=== PATIENT | female | born 1935 | race African-American/Black ===

== ENCOUNTER 2018-05-16 12:18 | Inpatient (IN) ==
--- NOTE | 2018-05-16 12:28 | Emergency Department Note ---
ED Disposition Clinical Impression: Abscess of right buttock, History of diabetes mellitus, type II Disposition: Admitted as Observation Condition on Discharge: Fair Instructions: DI for Skin Abscess Referrals: Paco Soto MD [Primary Care Provider] - Time of Disposition: 13:24 - Critical Care Critical Care Time: No Attestation: On 05/16/18, the high probability of a clinically significant, sudden or life threatening deterioration of the following system(s) required my full and direct attention, intervention and personal management. The time I documented below is in addition to time spent performing reported procedures but includes the following listed in this critical care notation. Medical Decision Making - Josh Inquiry Pt receiving controlled substance: No Vital Signs: 05/16/18 12:19 05/16/18 12:42 05/16/18 13:11 Temperature 98.0 F Temperature Source Oral Pulse Rate [Right Radial] 87 89 87 Respiratory Rate 16 16 16 Blood Pressure [Right Arm] 114/52 114/52 107/62 Blood Pressure Mean [Right Arm] 72 72 77 Blood Pressure Source [Right Arm] Automatic Cuff Automatic Cuff Automatic Cuff Blood Pressure Position [Right Arm] Supine Supine Supine 02 Sat by Pulse Oximetry 100 100 100 Oxygen Delivery Method Room Air Room Air Room Air Orders (Tests/Meds): ORDERS Category Date Time Status Complete Blood Count Auto Diff Stat Lab 05/16/18 12:23 Ordered Comprehensive Metabolic Panel Stat Lab 05/16/18 12:23 Ordered Lactic Acid Stat Lab 05/16/18 12:23 Ordered Blood Culture Stat Micro 05/16/18 12:23 Ordered - Physician Consults Physician Consulted: Dr. Soto Time: 13:20 (Dr. Soto called to request vanc per pharmacy, go ahead and admit with consult to surgery) Reason -: Admission Skin/Abscess/FB HPI - General Chief complaint: Skin/Abscess/Foreign Body Stated complaint: abscess on buttocks Time Seen by Provider: 05/16/18 12:25 Mode of Arrival: EMS - History of Present Illness HPI narrative: Seen by PCP at [facility] today, who requested transfer to ED for evaluation of abscess , right buttocks. Patient underwent eye surgery yesterday. She has no complaints today. Unknown timeframe for abscess. Hx DMBlanco RACHEL complaint: abscess/boil Onset (ago): unknown Severity: moderate Consistency: constant Relieving factors: none Exacerbating factors: none Context: other ([facility] pt) Associated symptoms: denies other symptoms Treatments prior to arrival: none - Related Data Home Medications Medication Instructions Recorded Confirmed Amlodipine Besylate [Norvasc 5mg 5 mg PO HS 01/09/18 05/16/18 tablet] Hydrocodone/Acetaminophen 1 each PO QID 01/09/18 05/16/18 [Hydrocodone-Acetamin 10-325 mg] Loratadine [Claritin] 10 mg PO DAILY 01/09/18 05/16/18 Metformin HCl 500 mg PO BID 01/09/18 05/16/18 Ondansetron HCl [Ondansetron 4mg 4 mg PO Q6 PRN 01/09/18 05/16/18 Tab] Spironolact/Hydrochlorothiazid 1 each PO DAILY 01/09/18 05/16/18 [Spironolactone-Hctz 25-25 Tab] Baclofen [Lioresal 10mg tablet] 10 mg PO TID 04/08/18 05/16/18 Mirtazapine [Remeron 15mg tablet] 15 mg PO HS 04/08/18 05/16/18 Sennosides/Docusate Sodium 1 each PO DAILY 04/08/18 05/16/18 [Senna-S Tablet] acetaminophen 500 mg capsule 500 mg PO Q6H PRN 04/18/18 05/16/18 Ascorbic Acid [Vitamin C] 1,000 mg PO DAILY 05/16/18 05/16/18 Allergies Allergy/AdvReac Type Severity Reaction Status Date / Time Penicillins Allergy Verified 05/16/18 12:33 [facility] History I have reviewed the patient's past medical history: Yes Medical History: Reports:: Diabetes Mellitus Type 2, Hyperlipidemia, Hypertension Denies:: Cancer, Diabetes Mellitus Type 1, Internal Pacemaker, Lung Disease, MRSA, Seizures Other Surgeries: No: Pacemaker Amputation: No Fractures: No - Social History Smoking Status: Former smoker Alcohol Intake: former ROS Obtained: Yes All systems reviewed & no additional complaints, Yes unobtainable due to mental condition ([facility] patient; poor historian; information from [place] report) Physical Exam - General General appearance: alert, in no apparent distress - Head Head exam: atraumatic, normocephalic, normal inspection - Eye Eye exam: Present: normal appearance, EOMI - ENT ENT exam: Present: normal exam, normal oropharynx, mucous membranes moist, normal external ear exam - Neck Neck exam: Present: normal inspection, full ROM, trachea midline. Absent: meningismus, lymphadenopathy - Chest Chest inspection: Present: normal inspection, symmetric chest wall rise. Absent : tenderness - Respiratory Respiratory exam: Present: normal lung sounds bilaterally. Absent: respiratory distress - Cardiovascular Cardiovascular exam: Present: regular rate, normal rhythm, normal heart sounds. Absent: JVD - Abdominal Exam Abdominal exam: Present: soft, normal bowel sounds. Absent: distention, tenderness, guarding, ascites, mass, bruit, pulsatile mass - Extremities Exam Extremities exam: Present: normal inspection, full ROM, normal capillary refill. Absent: calf tenderness - Back Exam Back exam: Present: normal inspection. Absent: tenderness - Neurological Exam Neurological exam: Present: alert, oriented X3 - Psychiatric Psychiatric exam: Present: normal affect, normal mood - Skin Skin exam: Present: warm, dry, intact, normal color, other (leathery, deep, extensive abscess to right buttocks just lateral to coccyx and to right of rectal area without any obvious external rectal involvement; no fluctuance or streaks; no pus or drainage. ) - Lymphatic Lymphatic Findings: no adenopathy
[2018-05-16 13:28] LABS: Basophils % 0.4 % (0.1-2.0); Eosinophils # 0.3 K/mm3 (0.0-0.4); Eosinophils % 3.1 % (0.1-12.0); Hematocrit 41.4 % (37.0-47.0); Hemoglobin 12.1 g/dL (12.2-16.2); Lymphocytes # 2.1 K/mm3 (0.7-4.5); Lymphocytes % 27.3 K/mm3 (10-50); Mean Corpuscular HGB Conc 29.4 g/dL (31.8-35.4); Mean Corpuscular Hemoglobin 27.7 pg (27.0-31.2); Mean Corpuscular Volume 94.3 fl (81-99); Mean Platelet Volume 7.6 fl (7.4-10.4); Monocytes # 0.4 K/mm3 (0.1-1.0); Monocytes % 5.6 % (1.7-9.3); Neutrophils % 63.6 % (37.0-80.0); Platelet Count 494 K/mm3 (142-424); Red Blood Count 4.39 M/mm3 (4.20-5.40); Red Cell Distribution Width 12.9 % (11.5-17.5); White Blood Count 7.9 K/mm3 (4.8-10.8)
[2018-05-16 13:42] LABS: Albumin Level 2.5 gm/dL (3.4-5.0); Albumin/Globulin Ratio 0.5 (1.1-1.8); Anion Gap 11.4 mEq/L (5-15); Bilirubin,Total 0.3 mg/dL (0.2-1.0); Calcium 9.2 mg/dL (8.5-10.1); Globulin 4.7 gm/dl (1.3-3.2); Potassium 3.4 mmoL/L (3.5-5.1); Total Protein,Serum 7.2 gm/dL (6.4-8.2)
--- NOTE | 2018-05-16 14:51 | Pharmacy Consult Notes ---
- Pharmacy Consult Date: 05/16/18 Time: 14:49 Referring provider: DR. ANDERSON Reason for Consult:: VANCOMYCIN DOSING-CELLULITIS/ABSCESS Allergies and ADEs:: Allergies Allergy/AdvReac Type Severity Reaction Status Date / Time Penicillins Allergy Verified 05/16/18 12:33 Home Medications:: Home Medications Medication Instructions Recorded Confirmed Type Amlodipine Besylate [Norvasc 5mg 5 mg PO HS 01/09/18 05/16/18 History tablet] Hydrocodone/Acetaminophen 1 each PO QID 01/09/18 05/16/18 History [Hydrocodone-Acetamin 10-325 mg] Loratadine [Claritin] 10 mg PO DAILY 01/09/18 05/16/18 History Metformin HCl 500 mg PO BID 01/09/18 05/16/18 History Ondansetron HCl [Ondansetron 4mg 4 mg PO Q6 PRN 01/09/18 05/16/18 History Tab] Spironolact/Hydrochlorothiazid 1 each PO DAILY 01/09/18 05/16/18 History [Spironolactone-Hctz 25-25 Tab] Baclofen [Lioresal 10mg tablet] 10 mg PO TID 04/08/18 05/16/18 History Mirtazapine [Remeron 15mg tablet] 15 mg PO HS 04/08/18 05/16/18 History Sennosides/Docusate Sodium 1 each PO DAILY 04/08/18 05/16/18 History [Senna-S Tablet] acetaminophen 500 mg capsule 500 mg PO Q6H PRN 04/18/18 05/16/18 History Ascorbic Acid [Vitamin C] 1,000 mg PO DAILY 05/16/18 05/16/18 History Height: 1.63 m Weight: 52.191 kg Laboratory Results:: Laboratory Results - last 24 hr 05/16/18 13:15: WBC 7.9, RBC 4.39, Hgb 12.1 L, Hct 41.4, MCV 94.3, MCH 27.7, MCHC 29.4 L, RDW 12.9, Plt Count 494 H, MPV 7.6, Neut % (Auto) 63.6, Lymph % ( Auto) 27.3, [place] % (Auto) 5.6, Eos % (Auto) 3.1, Baso % (Auto) 0.4, Neut # (Auto ) 5.0, Lymph # (Auto) 2.1, [place] # (Auto) 0.4, Eos # (Auto) 0.3, Baso # (Auto) 0.0 05/16/18 13:15: Sodium 141, Potassium 3.4 L, Chloride 104, Carbon Dioxide 29, Anion Gap 11.4, BUN 34 H, Creatinine 1.32 H, Estimated Creat Clear 26, Estimated GFR 38 L, Est GFR ( Amer) 46 L, Glucose 114 H, Calcium 9.2, Total Bilirubin 0.3, AST 28, ALT 18, Alkaline Phosphatase 86, Total Protein 7.2 , Albumin 2.5 L, Globulin 4.7 H, Albumin/Globulin Ratio 0.5 L 05/16/18 13:15: Lactic Acid 2.4 H Medical History: Reports:: Diabetes Mellitus Type 2, Hyperlipidemia, Hypertension Denies:: Cancer, Diabetes Mellitus Type 1, Internal Pacemaker, Lung Disease, MRSA, Seizures Assessment and Plan - Assessment and plan all Dx Assessment and Plan for all problems:: BASED ON PATIENT'S FACTORS, RECOMMEND PATIENT START WITH VANCOMYCIN 1000 MG NOW AND THEN VANCOMYCIN 1000 MG Q36H STARTING AT 1300 TOMORROW. PHARMACY WILL FOLLOW DAILY AND ADJUST APPROPRIATE. ELIESER WILKS, PHARMD
--- NOTE | 2018-05-16 15:08 | Pharmacy Consult Notes ---
[facility] Pharmacy VTE Monitoring - Patient Demographics Admission date: 05/16/18 Report Date: 05/16/18 Time: 15:08 Allergies/Adverse Reactions: Patient Allergies Penicillins Allergy (Verified 05/16/18 12:33) Height: 1.63 m Weight: 52.191 kg Patient Problems: Current Active Problems Abscess of right buttock (Acute) History of diabetes mellitus, type II (Acute) - VTE Risk Labs: VTE Related Lab Results Hgb 12.1 g/dL (12.2-16.2) L 05/16/18 13:15 Hct 41.4 % (37.0-47.0) 05/16/18 13:15 Plt Count 494 K/mm3 (142-424) H 05/16/18 13:15 BUN 34 mg/dL (7-18) H 05/16/18 13:15 Creatinine 1.32 mg/dL (0.55-1.02) H 05/16/18 13:15 Estimated Creat Clear 26 mL/min (0-300) 05/16/18 13:15 Clinical Trial Participant: No - Prophylaxis VTE Prophylaxis Ordered?: Yes Types of VTE Prophylaxis: TEDS Knee High
--- NOTE | 2018-05-16 15:46 | Consult Report ---
*Admission Date: 05/16/18 *Chief complaint: Right buttock abscess *History of present illness: This is an 82-year-old female seen in consultation from Dr. Soto for evaluation regarding a right buttock abscess. She underwent eye surgery yesterday. She was evaluated by her primary care provider at her [facility] earlier today and found to have changes consistent with possible right buttock abscess. She was transferred to the emergency department for further evaluation and management where she was admitted with surgical consultation and antibiotic coverage. She is essentially without complaints with regard to pain in this area. No documented fevers. Review of Systems - Review of Systems Review of systems:: unable to obtain [facility] History Medical History: Reports:: Diabetes Mellitus Type 2, Hyperlipidemia, Hypertension Denies:: Cancer, Diabetes Mellitus Type 1, Internal Pacemaker, Lung Disease, MRSA, Seizures Other Surgeries: No: Pacemaker Amputation: No Fractures: No - *Social History Smoking Status: Former smoker Alcohol Intake: former - Psychiatric History Expresses thoughts of harming self/others: None Suicide Plan Description: No Plan Meds Home Medications Medication Instructions Recorded Confirmed Type Amlodipine Besylate [Norvasc 5mg 5 mg PO HS 01/09/18 05/16/18 History tablet] Hydrocodone/Acetaminophen 1 each PO QID 01/09/18 05/16/18 History [Hydrocodone-Acetamin 10-325 mg] Loratadine [Claritin] 10 mg PO DAILY 01/09/18 05/16/18 History Metformin HCl 500 mg PO BIDWM 01/09/18 05/16/18 History Ondansetron HCl [Ondansetron 4mg 4 mg PO Q6 PRN 01/09/18 05/16/18 History Tab] Spironolact/Hydrochlorothiazid 1 each PO DAILY 01/09/18 05/16/18 History [Spironolactone-Hctz 25-25 Tab] Baclofen [Lioresal 10mg tablet] 10 mg PO TID 04/08/18 05/16/18 History Mirtazapine [Remeron 15mg tablet] 15 mg PO HS 04/08/18 05/16/18 History Sennosides/Docusate Sodium 1 each PO DAILY 04/08/18 05/16/18 History [Senna-S Tablet] acetaminophen 500 mg capsule 500 mg PO Q6H PRN 04/18/18 05/16/18 History Ascorbic Acid [Vitamin C] 1,000 mg PO DAILY 05/16/18 05/16/18 History Allergies Allergy/AdvReac Type Severity Reaction Status Date / Time Penicillins Allergy Unknown Verified 05/16/18 15:42 allergy reaction Exam Vital signs and Labs for Last 24 Hours: Temp Pulse Resp BP Pulse Ox 99.0 F 96 H 20 120/69 94 L 05/16/18 14:40 05/16/18 14:40 05/16/18 14:40 05/16/18 14:40 05/16/18 14:40 Laboratory Results - last 24 hr 05/16/18 13:15: WBC 7.9, RBC 4.39, Hgb 12.1 L, Hct 41.4, MCV 94.3, MCH 27.7, MCHC 29.4 L, RDW 12.9, Plt Count 494 H, MPV 7.6, Neut % (Auto) 63.6, Lymph % ( Auto) 27.3, [place] % (Auto) 5.6, Eos % (Auto) 3.1, Baso % (Auto) 0.4, Neut # (Auto ) 5.0, Lymph # (Auto) 2.1, [place] # (Auto) 0.4, Eos # (Auto) 0.3, Baso # (Auto) 0.0 05/16/18 13:15: Sodium 141, Potassium 3.4 L, Chloride 104, Carbon Dioxide 29, Anion Gap 11.4, BUN 34 H, Creatinine 1.32 H, Estimated Creat Clear 26, Estimated GFR 38 L, Est GFR ( Amer) 46 L, Glucose 114 H, Calcium 9.2, Total Bilirubin 0.3, AST 28, ALT 18, Alkaline Phosphatase 86, Total Protein 7.2 , Albumin 2.5 L, Globulin 4.7 H, Albumin/Globulin Ratio 0.5 L 05/16/18 13:15: Lactic Acid 2.4 H I & O for Last 24 hours: Intake & Output 05/14/18 05/15/18 05/16/18 05/17/18 11:59 11:59 11:59 11:59 Weight 115 lb 1 oz - Constitutional no acute distress - *Routine Respiratory Exam Absent: respiratory distress - *Routine Cardiovascular Exam Present: RRR - *Routine Skin Exam Comments: Significant induration along right buttock. No fluctuance. No "spreading cellulitis". Results - Labs 05/16/18 13:15 05/16/18 13:15 Laboratory Results - last 24 hr 05/16/18 13:15: WBC 7.9, RBC 4.39, Hgb 12.1 L, Hct 41.4, MCV 94.3, MCH 27.7, MCHC 29.4 L, RDW 12.9, Plt Count 494 H, MPV 7.6, Neut % (Auto) 63.6, Lymph % ( Auto) 27.3, [place] % (Auto) 5.6, Eos % (Auto) 3.1, Baso % (Auto) 0.4, Neut # (Auto ) 5.0, Lymph # (Auto) 2.1, [place] # (Auto) 0.4, Eos # (Auto) 0.3, Baso # (Auto) 0.0 05/16/18 13:15: Sodium 141, Potassium 3.4 L, Chloride 104, Carbon Dioxide 29, Anion Gap 11.4, BUN 34 H, Creatinine 1.32 H, Estimated Creat Clear 26, Estimated GFR 38 L, Est GFR ( Amer) 46 L, Glucose 114 H, Calcium 9.2, Total Bilirubin 0.3, AST 28, ALT 18, Alkaline Phosphatase 86, Total Protein 7.2 , Albumin 2.5 L, Globulin 4.7 H, Albumin/Globulin Ratio 0.5 L 05/16/18 13:15: Lactic Acid 2.4 H Assessment and Plan (1) Abscess of right buttock Current visit: Yes Status: Acute Category: Medical Code(s): L02.31 - Cutaneous abscess of buttock Somewhat immature abscess with no fluctuance. Induration noted within deep tissues and overlying skin. No cellulitis and no pain/tenderness. Continue vancomycin Invanz ordered (secondary to abscess location... penicillin allergy limits options) Reevaluate in a.m. with possible incision and drainage versus continuation of antibiotics in order to allow for either resolution or maturation prior to operative intervention.
[2018-05-17 06:14] LABS: Basophils % 0.6 % (0.1-2.0); Eosinophils # 0.2 K/mm3 (0.0-0.4); Lymphocytes # 1.6 K/mm3 (0.7-4.5); Lymphocytes % 27.5 K/mm3 (10-50); Mean Corpuscular HGB Conc 29.8 g/dL (31.8-35.4); Mean Corpuscular Hemoglobin 27.9 pg (27.0-31.2); Mean Corpuscular Volume 93.8 fl (81-99); Mean Platelet Volume 7.9 fl (7.4-10.4); Monocytes # 0.3 K/mm3 (0.1-1.0); Monocytes % 5.5 % (1.7-9.3); Neutrophils # 3.7 K/mm3 (1.8-7.8); Neutrophils % 62.4 % (37.0-80.0); Platelet Count 447 K/mm3 (142-424); Red Blood Count 3.84 M/mm3 (4.20-5.40); White Blood Count 5.9 K/mm3 (4.8-10.8)
[2018-05-17 06:49] LABS: Hemoglobin 10.7 g/dL (12.2-16.2)
[2018-05-17 06:57] LABS: Calcium 8.8 mg/dL (8.5-10.1)
[2018-05-17 07:19] LABS: Anion Gap 12.2 mEq/L (5-15); Potassium 3.2 mmoL/L (3.5-5.1)
--- NOTE | 2018-05-17 07:20 | Progress Note ---
Subjective Patient reports: no new complaints Exam Vital signs and Labs for Last 24 Hours: Temp Pulse Resp BP Pulse Ox 97.6 F 92 H 16 164/69 98 05/17/18 04:00 05/17/18 04:00 05/17/18 04:00 05/17/18 04:00 05/17/18 04:00 Laboratory Results - last 24 hr 05/16/18 13:15: WBC 7.9, RBC 4.39, Hgb 12.1 L, Hct 41.4, MCV 94.3, MCH 27.7, MCHC 29.4 L, RDW 12.9, Plt Count 494 H, MPV 7.6, Neut % (Auto) 63.6, Lymph % ( Auto) 27.3, [place] % (Auto) 5.6, Eos % (Auto) 3.1, Baso % (Auto) 0.4, Neut # (Auto ) 5.0, Lymph # (Auto) 2.1, [place] # (Auto) 0.4, Eos # (Auto) 0.3, Baso # (Auto) 0.0 05/16/18 13:15: Sodium 141, Potassium 3.4 L, Chloride 104, Carbon Dioxide 29, Anion Gap 11.4, BUN 34 H, Creatinine 1.32 H, Estimated Creat Clear 26, Estimated GFR 38 L, Est GFR ( Amer) 46 L, Glucose 114 H, Calcium 9.2, Total Bilirubin 0.3, AST 28, ALT 18, Alkaline Phosphatase 86, Total Protein 7.2 , Albumin 2.5 L, Globulin 4.7 H, Albumin/Globulin Ratio 0.5 L 05/16/18 13:15: Lactic Acid 2.4 H 05/16/18 16:13: POC Glucose 103 05/16/18 18:20: Lactic Acid Fup @ 4Hr 1.9 05/16/18 21:06: Random Glucose 125 H 05/16/18 21:23: POC Glucose 100 05/17/18 05:37: WBC 5.9 D, RBC 3.84 L, Hgb 10.7 L D, Hct 36.0 L, MCV 93.8, MCH 27.9, MCHC 29.8 L, RDW 13.0, Plt Count 447 H, MPV 7.9, Neut % (Auto) 62.4, Lymph % (Auto) 27.5, [place] % (Auto) 5.5, Eos % (Auto) 4.0, Baso % (Auto) 0.6, Neut # (Auto) 3.7, Lymph # (Auto) 1.6, [place] # (Auto) 0.3, Eos # (Auto) 0.2, Baso # (Auto) 0.0 05/17/18 05:37: BUN 26 H, Creatinine 1.05 H D, Estimated Creat Clear 33, Estimated GFR 50 L, Est GFR ( Amer) 60 D, Glucose 102, Calcium 8.8 I & O for Last 24 hours: Intake & Output 05/14/18 05/15/18 05/16/18 05/17/18 11:59 11:59 11:59 11:59 Intake Total Output Total 150 / 150 Balance -130 / -130 Weight 115 lb 1 oz - Constitutional no acute distress - *Routine Respiratory Exam Absent: respiratory distress - *Routine Skin Exam Comments: right buttock slightly softer...no erythema...non-tender Progress Note: A&P (1) Abscess of right buttock Status: Acute Assessment and plan: Slight improvement in terms of induration. This may represent a significant soft tissue infection with possible very early/immature abscess (significant induration as opposed to purulence). It is improving with antibiotic coverage and the risks associated with surgical intervention with concomitant sedation and wound care likely outweigh the current benefit. However, ongoing IV antibiotics with close reevaluation warranted. Current Visit: Yes
--- NOTE | 2018-05-17 08:24 | History & Physical Report ---
*Admission Date: 05/16/18 *History of present illness: This is an 82-year-old female seen in consultation from Dr. Soto for evaluation regarding a right buttock abscess. She underwent eye surgery yesterday. She was evaluated by her primary care provider at her longterm earlier today and found to have changes consistent with possible right buttock abscess. She was transferred to the emergency department for further evaluation and management where she was admitted with surgical consultation and antibiotic coverage. She is essentially without complaints with regard to pain in this area. No documented fevers. [facility] [place] History I have reviewed the patient's past medical history: Yes Medical History: Reports:: Diabetes Mellitus Type 2, Hyperlipidemia, Hypertension Denies:: Cancer, Diabetes Mellitus Type 1, Internal Pacemaker, Lung Disease, MRSA, Seizures Other Surgeries: No: Pacemaker Amputation: No Fractures: No - *Social History Educational Level: Completed High School Smoking Status: Former smoker Alcohol Intake: former Occupational Status: retired, disabled Housing: longterm - Psychiatric History Expresses thoughts of harming self/others: None Suicide Plan Description: No Plan Review of Systems - Review of Systems Review of systems:: pertinent systems reviewed and negative unless documented below - Constitutional Reports fatigue, Denies fever(s) - Eyes Denies change in vision - ENT Denies neck pain - *Cardiovascular Denies chest pain - *Respiratory Denies cough - *Gastrointestinal Denies abdominal pain - *Genitourinary Denies blood in urine - *Musculoskeletal Denies joint pain - Integumentary/Breasts Reports boil - *Neurologic Denies seizure-like activity Meds Home Medications Medication Instructions Recorded Confirmed Type Amlodipine Besylate [Norvasc 5mg 5 mg PO HS 01/09/18 05/16/18 History tablet] Hydrocodone/Acetaminophen 1 each PO QID 01/09/18 05/16/18 History [Hydrocodone-Acetamin 10-325 mg] Loratadine [Claritin] 10 mg PO DAILY 01/09/18 05/16/18 History Metformin HCl 500 mg PO BIDWM 01/09/18 05/16/18 History Ondansetron HCl [Ondansetron 4mg 4 mg PO Q6 PRN 01/09/18 05/16/18 History Tab] Spironolact/Hydrochlorothiazid 1 each PO DAILY 01/09/18 05/16/18 History [Spironolactone-Hctz 25-25 Tab] Baclofen [Lioresal 10mg tablet] 10 mg PO TID 04/08/18 05/16/18 History Mirtazapine [Remeron 15mg tablet] 15 mg PO HS 04/08/18 05/16/18 History Sennosides/Docusate Sodium 1 each PO DAILY 04/08/18 05/16/18 History [Senna-S Tablet] acetaminophen 500 mg capsule 500 mg PO Q6H PRN 04/18/18 05/16/18 History Ascorbic Acid [Vitamin C] 1,000 mg PO DAILY 05/16/18 05/16/18 History Allergies Allergy/AdvReac Type Severity Reaction Status Date / Time Penicillins Allergy Unknown Verified 05/16/18 15:42 allergy reaction Exam Vital signs and Labs for Last 24 Hours: Temp Pulse Resp BP Pulse Ox 98.9 F 88 18 118/63 97 05/17/18 07:40 05/17/18 07:40 05/17/18 07:40 05/17/18 07:40 05/17/18 07:40 Laboratory Results - last 24 hr 05/16/18 13:15: WBC 7.9, RBC 4.39, Hgb 12.1 L, Hct 41.4, MCV 94.3, MCH 27.7, MCHC 29.4 L, RDW 12.9, Plt Count 494 H, MPV 7.6, Neut % (Auto) 63.6, Lymph % ( Auto) 27.3, [place] % (Auto) 5.6, Eos % (Auto) 3.1, Baso % (Auto) 0.4, Neut # (Auto ) 5.0, Lymph # (Auto) 2.1, [place] # (Auto) 0.4, Eos # (Auto) 0.3, Baso # (Auto) 0.0 05/16/18 13:15: Sodium 141, Potassium 3.4 L, Chloride 104, Carbon Dioxide 29, Anion Gap 11.4, BUN 34 H, Creatinine 1.32 H, Estimated Creat Clear 26, Estimated GFR 38 L, Est GFR ( Amer) 46 L, Glucose 114 H, Calcium 9.2, Total Bilirubin 0.3, AST 28, ALT 18, Alkaline Phosphatase 86, Total Protein 7.2 , Albumin 2.5 L, Globulin 4.7 H, Albumin/Globulin Ratio 0.5 L 05/16/18 13:15: Lactic Acid 2.4 H 05/16/18 16:13: POC Glucose 103 05/16/18 18:20: Lactic Acid Fup @ 4Hr 1.9 05/16/18 21:06: Random Glucose 125 H 05/16/18 21:23: POC Glucose 100 05/17/18 05:37: WBC 5.9 D, RBC 3.84 L, Hgb 10.7 L D, Hct 36.0 L, MCV 93.8, MCH 27.9, MCHC 29.8 L, RDW 13.0, Plt Count 447 H, MPV 7.9, Neut % (Auto) 62.4, Lymph % (Auto) 27.5, [place] % (Auto) 5.5, Eos % (Auto) 4.0, Baso % (Auto) 0.6, Neut # (Auto) 3.7, Lymph # (Auto) 1.6, [place] # (Auto) 0.3, Eos # (Auto) 0.2, Baso # (Auto) 0.0 05/17/18 05:37: Sodium 140, Potassium 3.2 L, Chloride 104, Carbon Dioxide 27, Anion Gap 12.2, BUN 26 H, Creatinine 1.05 H D, Estimated Creat Clear 33, Estimated GFR 50 L, Est GFR ( Amer) 60 D, Glucose 102, Calcium 8.8 05/17/18 06:16: POC Glucose 110 I & O for Last 24 hours: Intake & Output 05/14/18 05/15/18 05/16/18 05/17/18 11:59 11:59 11:59 11:59 Intake Total Output Total 150 / 150 Balance -130 / -130 Weight 115 lb 1 oz - Constitutional no acute distress, thin - *Routine HEENT Exam Head: Present: normocephalic Eye: Present: EOMI, PERRL ENT: Present: mucous membranes dry - *Routine Neck Exam Present: supple - *Routine Respiratory Exam Absent: decreased breath sounds - *Routine Cardiovascular Exam Present: RRR, murmur, S4 - *Routine Abdominal Exam Present: soft - *Routine Extremities Exam Absent: calf tenderness - *Routine Skin Exam Comments: abscess gluteal - see surg note - *Routine Neurological Exam Present: alert, CN II-XII intact - Routine Psychiatric Exam Present: unable to assess H&P: Result - Labs Labs: Short CBC 05/16/18 05/17/18 Range/Units 13:15 05:37 WBC 7.9 5.9 D (4.8-10.8) K/mm3 Hgb 12.1 L 10.7 L D (12.2-16.2) g/dL Hct 41.4 36.0 L (37.0-47.0) % Plt Count 494 H 447 H (142-424) K/mm3 BMP 05/16/18 05/17/18 13:15 05:37 Sodium 141 140 Potassium 3.4 L 3.2 L Chloride 104 104 Carbon Dioxide 29 27 BUN 34 H 26 H Creatinine 1.32 H 1.05 H D Glucose 114 H 102 Calcium 9.2 8.8 Liver Function 05/16/18 Range/Units 13:15 Total Bilirubin 0.3 (0.2-1.0) mg/dL AST 28 (15-37) U/L ALT 18 (12-78) U/L Alkaline Phosphatase 86 (46-116) U/L Albumin 2.5 L (3.4-5.0) gm/dL Assessment and Plan (1) Abscess of right buttock Current visit: Yes Status: Acute Category: Medical Code(s): L02.31 - Cutaneous abscess of buttock (2) Renal insufficiency Current visit: Yes Status: Acute Category: Medical Code(s): N28.9 - Disorder of kidney and ureter, unspecified (3) Anemia Current visit: Yes Status: Acute Qualifiers: Anemia type: unspecified type Qualified Code(s): D64.9 - Anemia, unspecified Category: Medical Code(s): D64.9 - Anemia, unspecified
--- NOTE | 2018-05-18 07:34 | Progress Note ---
Subjective Patient reports: no new complaints Exam Vital signs and Labs for Last 24 Hours: Temp Pulse Resp BP Pulse Ox 98.2 F 112 H 16 140/70 94 L 05/18/18 04:00 05/18/18 04:00 05/18/18 04:00 05/18/18 04:00 05/18/18 04:00 Laboratory Results - last 24 hr 05/16/18 20:38: POC Glucose < 40 L* 05/16/18 20:41: POC Glucose < 40 L* 05/17/18 11:23: POC Glucose 115 H 05/17/18 16:37: POC Glucose 105 05/17/18 21:40: POC Glucose 94 05/18/18 06:52: POC Glucose 107 I & O for Last 24 hours: Intake & Output 05/15/18 05/16/18 05/17/18 05/18/18 11:59 11:59 11:59 11:59 Intake Total 20 / 20 600 / 600 Output Total 150 / 150 500 / 500 Balance -130 / -130 100 / 100 Weight 115 lb 1 oz - Constitutional no acute distress - *Routine Skin Exam Comments: Area of excoriation unchanged. Induration improved. No cellulitis. No tenderness to palpation. Progress Note: A&P (1) Abscess of right buttock Status: Acute Assessment and plan: Soft tissue infection of right buttock improving in terms of induration. Remains nontender. No cellulitis. Although the patient may require incision and drainage in the very near future, she is currently improving. This represents a significant soft tissue infection and possibly an early/immature abscess (as opposed to mature abscess cavity) that would likely not benefit from incision and drainage at this time. She will require ongoing IV antibiotics and consideration of PICC placement warranted. Close follow-up will be ongoing. Current Visit: Yes (2) Renal insufficiency Status: Acute Current Visit: Yes (3) Anemia Status: Acute Current Visit: Yes
[2018-05-18 08:22] VITALS: BP 155/70
--- NOTE | 2018-05-18 09:52 | Discharge Summary ---
General - General Admission date:: 05/16/18 Discharge date: 05/18/18 HPI HPI: This is an 82-year-old female seen in consultation from Dr. Soto for evaluation regarding a right buttock abscess. She underwent eye surgery yesterday. She was evaluated by her primary care provider at her detention earlier today and found to have changes consistent with possible right buttock abscess. She was transferred to the emergency department for further evaluation and management where she was admitted with surgical consultation and antibiotic coverage. She is essentially without complaints with regard to pain in this area. No documented fevers. Hospital Course Hospital Course: pt has did better and area has improved and has been seen by surg and will be followed as op with dr baez on monday - pt with out fever and has bety diet noris the patient may require incision and drainage in the very near future, she is currently improving. This represents a significant soft tissue infection and possibly an early/immature abscess (as opposed to mature abscess cavity) that would likely not benefit from incision and drainage at this time. She will require ongoing IV antibiotics and consideration of PICC placement warranted. Close follow-up will be ongoing. Current Visit: Yes Objective Vital signs: Temp Pulse Resp BP Pulse Ox 98.9 F 87 16 155/70 99 05/18/18 08:00 05/18/18 08:00 05/18/18 08:00 05/18/18 08:00 05/18/18 08:00 no acute distress - *Routine HEENT Exam Head: Present: normocephalic Eye: Present: EOMI, PERRL ENT: Present: mucous membranes dry - *Routine Neck Exam Present: supple - *Routine Respiratory Exam Present: CTA bilaterally - *Routine Cardiovascular Exam Present: RRR, murmur - *Routine Abdominal Exam Present: soft - *Routine Extremities Exam Absent: edema - *Routine Skin Exam Comments: resolving area of cellulitis to gluteal area - *Routine Neurological Exam Present: CN II-XII intact - Routine Psychiatric Exam Present: normal affect Results Labs on day of discharge: Labs from last 24 hours 05/18/18 05/17/18 05/17/18 06:52 21:40 16:37 POC Glucose 107 94 105 05/17/18 05/16/18 05/16/18 11:23 20:41 20:38 POC Glucose 115 H < 40 L* < 40 L* DS: Diagnosis - Discharge Diagnosis (1) Abscess of right buttock Status: Acute (2) Renal insufficiency Status: Acute (3) Anemia Status: Acute Discharge Plan - Patient Discharge Instructions ACTIVITY: Continue current activity DIET: continue same diet Patient Instructions: Kidney Failure, Type 2 Diabetes, Anemia, DI for Skin Abscess - Follow up Plan Follow up with: Beto Baez MD [Staff Physician] - 05/22/18 Disposition: [facility] Home Medications: Home Medications Medication Instructions Recorded Confirmed Type Amlodipine Besylate [Norvasc 5mg 5 mg PO HS 01/09/18 05/16/18 History tablet] Hydrocodone/Acetaminophen 1 each PO QID 01/09/18 05/16/18 History [Hydrocodone-Acetamin 10-325 mg] Loratadine [Claritin] 10 mg PO DAILY 01/09/18 05/16/18 History Metformin HCl 500 mg PO BIDWM 01/09/18 05/16/18 History Ondansetron HCl [Ondansetron 4mg 4 mg PO Q6 PRN 01/09/18 05/16/18 History Tab] Spironolact/Hydrochlorothiazid 1 each PO DAILY 01/09/18 05/16/18 History [Spironolactone-Hctz 25-25 Tab] Baclofen [Lioresal 10mg tablet] 10 mg PO TID 04/08/18 05/16/18 History Mirtazapine [Remeron 15mg tablet] 15 mg PO HS 04/08/18 05/16/18 History Sennosides/Docusate Sodium 1 each PO DAILY 04/08/18 05/16/18 History [Senna-S Tablet] acetaminophen 500 mg capsule 500 mg PO Q6H PRN 04/18/18 05/16/18 History Ascorbic Acid [Vitamin C] 1,000 mg PO DAILY 05/16/18 05/16/18 History Prescriptions/Medication Reconciliation: New Ceftriaxone Sodium [Rocephin 1gm vial] 1 gm IM DAILY #10 vial Continue Metformin HCl 500 mg PO BIDWM Loratadine [Claritin] 10 mg PO DAILY Hydrocodone/Acetaminophen [Hydrocodone-Acetamin 10-325 mg] 1 each PO QID Mirtazapine [Remeron 15mg tablet] 15 mg PO HS Baclofen [Lioresal 10mg tablet] 10 mg PO TID Amlodipine Besylate [Norvasc 5mg tablet] 5 mg PO HS Sennosides/Docusate Sodium [Senna-S Tablet] 1 each PO DAILY Ascorbic Acid [Vitamin C] 1,000 mg PO DAILY Discontinued acetaminophen 500 mg capsule 500 mg PO Q6H PRN PRN Reason: pain/FEVER Spironolact/Hydrochlorothiazid [Spironolactone-Hctz 25-25 Tab] 1 each PO DAILY Ondansetron HCl [Ondansetron 4mg Tab] 4 mg PO Q6 PRN PRN Reason: Nausea
== END 2018-05-18 15:20 ==
LOC: 2ND 12:18 → ER 12:18 → OBSVTOIN 13:26 → 2ND 14:08
PROVIDERS: ADMIT Emergency Medicine; ATTEND Emergency Medicine
DX: E11.9 Type 2 diabetes mellitus without complications; Z79.84 Long term (current) use of oral hypoglycemic drugs; D64.9 Anemia, unspecified; Z87.891 Personal history of nicotine dependence; I10 Essential (primary) hypertension; H26.8 Other specified cataract; E78.5 Hyperlipidemia, unspecified; L02.31 Cutaneous abscess of buttock
CPT/HCPCS: 36415; 80048; 80053; 82947; 82962; 83605; 85025; 87040; 99284; J1335; J3370; V2632

== ENCOUNTER 2018-05-23 20:55 | Observation (INO) ==
[2018-05-23 21:37] LABS: Basophils # 0.1 K/mm3 (0-0.2); Basophils % 0.4 % (0.1-2.0); Eosinophils # 0.1 K/mm3 (0.0-0.4); Eosinophils % 0.5 % (0.1-12.0); Hematocrit 36.9 % (37.0-47.0); Hemoglobin 11.1 g/dL (12.2-16.2); Lymphocytes # 1.6 K/mm3 (0.7-4.5); Mean Corpuscular Hemoglobin 27.9 pg (27.0-31.2); Mean Corpuscular Volume 92.9 fl (81-99); Mean Platelet Volume 8.2 fl (7.4-10.4); Monocytes # 0.5 K/mm3 (0.1-1.0); Monocytes % 4.2 % (1.7-9.3); Neutrophils # 8.5 K/mm3 (1.8-7.8); Neutrophils % 79.8 % (37.0-80.0); Platelet Count 509 K/mm3 (142-424); Red Blood Count 3.97 M/mm3 (4.20-5.40); Red Cell Distribution Width 12.8 % (11.5-17.5); White Blood Count 10.7 K/mm3 (4.8-10.8)
[2018-05-23 21:46] LABS: Anion Gap 18.8 mEq/L (5-15); Calcium 9.1 mg/dL (8.5-10.1); Potassium 3.8 mmoL/L (3.5-5.1)
[2018-05-23 22:09] LABS: Albumin Level 2.7 gm/dL (3.4-5.0); Bilirubin,Direct 0.1 mg/dL (0.0-0.2); Bilirubin,Indirect 0.3 mg/dL (0.0-0.9); Bilirubin,Total 0.4 mg/dL (0.2-1.0); Total Protein,Serum 6.8 gm/dL (6.4-8.2)
--- NOTE | 2018-05-24 00:22 | Emergency Department Note ---
ED Disposition Clinical Impression: Renal insufficiency UTI (urinary tract infection) Qualifiers: Urinary tract infection type: site unspecified Hematuria presence: without hematuria Qualified Code(s): N39.0 - Urinary tract infection, site not specified Altered mental status Qualifiers: Altered mental status type: delirium Qualified Code(s): R41.0 - Disorientation , unspecified Disposition: Admitted as Observation Condition on Discharge: Fair Instructions: DI for Altered Mental Status Referrals: Paco Soto MD [Primary Care Provider] - - Critical Care Critical Care Time: No Attestation: On 05/23/18, the high probability of a clinically significant, sudden or life threatening deterioration of the following system(s) required my full and direct attention, intervention and personal management. The time I documented below is in addition to time spent performing reported procedures but includes the following listed in this critical care notation. Medical Decision Making - Medical Records Medical records reviewed: Yes: I reviewed the patient's medical records. - Josh Inquiry Pt receiving controlled substance: No Vital Signs: 05/23/18 21:01 Temperature 97.4 F L Temperature Source Rectal Pulse Rate [Right Radial] 65 Respiratory Rate 16 Blood Pressure [Right Arm] 158/80 Blood Pressure Mean [Right Arm] 106 Blood Pressure Source [Right Arm] Automatic Cuff Blood Pressure Position [Right Arm] Sitting 02 Sat by Pulse Oximetry 94 L Oxygen Delivery Method Room Air - Lab Data Lab results reviewed: Yes: I reviewed the patient's lab results. Lab Results 05/23/18 21:25: WBC 10.7, RBC 3.97 L, Hgb 11.1 L, Hct 36.9 L, MCV 92.9, MCH 27.9 , MCHC 30.0 L, RDW 12.8, Plt Count 509 H, MPV 8.2, Neut % (Auto) 79.8, Lymph % ( Auto) 15.0, [place] % (Auto) 4.2, Eos % (Auto) 0.5, Baso % (Auto) 0.4, Neut # (Auto ) 8.5 H, Lymph # (Auto) 1.6, [place] # (Auto) 0.5, Eos # (Auto) 0.1, Baso # (Auto) 0.1 05/23/18 21:25: Urine Color Yellow, Urine Appearance Cloudy, Urine pH 6.0, Ur Specific [place] 1.025, Urine Protein Trace, Urine Glucose (UA) Negative, Urine Ketones Negative, Urine Blood 2+, Urine Nitrate Negative, Urine Bilirubin Negative, Urine Urobilinogen 0.2, Ur Leukocyte Esterase 3+ A, Urine RBC Occasional, Urine WBC Tntc A, Ur Squamous Epith Cells 3-5, Urine Bacteria 1+ 05/23/18 21:25: Sodium 140, Potassium 3.8, Chloride 101, Carbon Dioxide 24, Anion Gap 18.8 H, BUN 37 H, Creatinine 1.27 H, Estimated Creat Clear 27, Estimated GFR 40 L, Est GFR ( Amer) 49 L, Glucose 95, Calcium 9.1 05/23/18 21:25: Total Bilirubin 0.4, Direct Bilirubin 0.1, Indirect Bilirubin 0.3, AST 43 H, ALT 36, Alkaline Phosphatase 91, Troponin I 0.05, Total Protein 6.8, Albumin 2.7 L, Amylase 71, Lipase 78 05/23/18 22:05: Lactic Acid 2.3 H Result diagrams: 05/23/18 21:25 05/23/18 21:25 Orders (Tests/Meds): ORDERS Category Date Time Status XR chest portable Stat Exams 05/23/18 21:35 Taken Lactic Acid Follow Up (4 hr) Stat Lab 05/23/18 23:27 Ordered Blood Culture Stat Micro 05/23/18 22:14 Received Urine Culture(cathed specimen) Stat Micro 05/23/18 21:25 Received 12-lead EKG Request [ECG Request by /Brandon] Stat Y 05/23/18 22:14 Ordered - Radiology Data #1 Image(s): Chest Image Reviewed: Yes I reviewed the patient's radiology image Preliminary Findings: Normal/NAD - ECG Data Tracing #1 I reviewed this ECG and interpreted as documented below: Normal Sinus Rhythm: Yes Ischemic changes: non-specific ST-T wave changes Altered Mental Status HPI - General Chief Complaint: Altered Mental Status Stated Complaint: altered mental status Time Seen by Provider: 05/23/18 21:30 Mode of Arrival: EMS Source of Information: Patient, EMS, Medical Record Limitations: Altered Mental Status Description of Symptoms (Recalled from ER Triage Doc. by RN): pt with baseline altered mental status, sent for reported worsened behavior, pt appears in no way altered from her previous visits has wound to both heels and buttocks , all improving s/p completion of antibiotics, pt is cooperative and in and out of sleep as is her norm - History of Present Illness HPI narrative: sent from [facility] with reported change in mental status - pt with recent buttock soft tissue infection complaint: altered mental status Onset (ago): day(s) Timing confirmed by: caregiver Severity: moderate Consistency of symptoms: getting worse - Related Data Home Medications Medication Instructions Recorded Confirmed Amlodipine Besylate [Norvasc 5mg 5 mg PO HS 01/09/18 05/23/18 tablet] Hydrocodone/Acetaminophen 1 each PO QID 01/09/18 05/23/18 [Hydrocodone-Acetamin 10-325 mg] Loratadine [Claritin] 10 mg PO DAILY 01/09/18 05/23/18 Metformin HCl 500 mg PO BIDWM 01/09/18 05/23/18 Baclofen [Lioresal 10mg tablet] 10 mg PO TID 04/08/18 05/23/18 Mirtazapine [Remeron 15mg tablet] 15 mg PO HS 04/08/18 05/23/18 Sennosides/Docusate Sodium 1 each PO DAILY 04/08/18 05/23/18 [Senna-S Tablet] Ascorbic Acid [Vitamin C] 1,000 mg PO DAILY 05/16/18 05/23/18 Ketorolac Tromethamine [Acular] 1 drop EYE-RIGHT BID 05/23/18 05/23/18 Allergies Allergy/AdvReac Type Severity Reaction Status Date / Time Penicillins Allergy Unknown Verified 05/16/18 15:42 allergy reaction [facility] History I have reviewed the patient's past medical history: Yes Medical History: Reports:: Diabetes Mellitus Type 2, Hyperlipidemia, Hypertension Denies:: Cancer, Diabetes Mellitus Type 1, Internal Pacemaker, Lung Disease, MRSA, Seizures Other Surgeries: No: Pacemaker Amputation: No Fractures: No - Social History Smoking Status: Former smoker Alcohol Intake: never Occupational Status: retired, disabled Housing: fdc - Psychiatric History Expresses thoughts of harming self/others: None Suicide Plan Description: No Plan ROS Obtained: Yes All systems reviewed & no additional complaints - Constitutional Constitutional: Denies fever(s) - Eyes Eyes: Denies eye discharge - ENT Ears, Nose, Mouth, and Throat: Denies epistaxis, Denies sore throat - Cardiovascular Cardiovascular: Denies chest pain - Respiratory Respiratory: No cough - Gastrointestinal Gastrointestingal: Denies: abdominal pain, diarrhea, vomiting - Genitourinary Female Genitourinary: Denies hematuria - Musculoskeletal Musculoskeletal: Denies joint pain, Denies joint swelling - Integumentary/Breasts Skin/Breast: Denies rash - Neurologic Neurologic: Denies headache(s), Denies seizure-like activity Physical Exam - General General appearance: in no apparent distress - Head Head exam: normocephalic - Eye Eye exam: Present: PERRL, EOMI. Absent: scleral icterus - ENT ENT exam: Present: mucous membranes dry - Neck Neck exam: Absent: trachea midline - Respiratory Respiratory exam: Present: normal lung sounds bilaterally. Absent: respiratory distress - Cardiovascular Cardiovascular exam: Present: regular rate, systolic murmur, +S4 - Abdominal Exam Abdominal exam: Present: soft - Extremities Exam Extremities exam: Absent: calf tenderness - Neurological Exam Neurological exam: Present: alert, CN II-XII intact - Psychiatric Psychiatric exam: Present: agitated - Skin Skin exam: Absent: rash
--- NOTE | 2018-05-24 07:39 | Pharmacy Consult Notes ---
[facility] Pharmacy VTE Monitoring - Patient Demographics Admission date: 05/24/18 Report Date: 05/24/18 Time: 07:39 Allergies/Adverse Reactions: Patient Allergies Penicillins Allergy (Verified 05/16/18 15:42) Unknown allergy reaction Height: 1.63 m Weight: 53.2 kg Patient Problems: Current Active Problems Renal insufficiency (Acute) UTI (urinary tract infection) (Acute) Altered mental status (Acute) - VTE Risk Labs: VTE Related Lab Results Hgb 11.1 g/dL (12.2-16.2) L 05/23/18 21:25 Hct 36.9 % (37.0-47.0) L 05/23/18 21:25 Plt Count 509 K/mm3 (142-424) H 05/23/18 21:25 BUN 37 mg/dL (7-18) H 05/23/18 21:25 Creatinine 1.27 mg/dL (0.55-1.02) H 05/23/18 21:25 Estimated Creat Clear 27 mL/min (0-300) 05/23/18 21:25 - Prophylaxis VTE Prophylaxis Ordered?: Yes Types of VTE Prophylaxis: TEDS Knee High Location of Applied Device: Bilateral Lower Extremeties - VTE Diagnosis Confirmed Treatment or plan recommended: Continue Current Treatment
[2018-05-24 08:58] LABS: Basophils % 0.4 % (0.1-2.0); Eosinophils # 0.1 K/mm3 (0.0-0.4); Eosinophils % 1.1 % (0.1-12.0); Lymphocytes # 1.7 K/mm3 (0.7-4.5); Lymphocytes % 18.2 K/mm3 (10-50); Mean Corpuscular HGB Conc 30.8 g/dL (31.8-35.4); Mean Corpuscular Hemoglobin 28.3 pg (27.0-31.2); Mean Corpuscular Volume 91.9 fl (81-99); Mean Platelet Volume 7.7 fl (7.4-10.4); Monocytes # 0.4 K/mm3 (0.1-1.0); Monocytes % 4.4 % (1.7-9.3); Neutrophils % 75.8 % (37.0-80.0); Platelet Count 476 K/mm3 (142-424); Red Blood Count 3.38 M/mm3 (4.20-5.40); Red Cell Distribution Width 12.9 % (11.5-17.5); White Blood Count 9.2 K/mm3 (4.8-10.8)
[2018-05-24 09:34] LABS: Anion Gap 19.4 mEq/L (5-15); Calcium 8.4 mg/dL (8.5-10.1); Potassium 4.4 mmoL/L (3.5-5.1)
[2018-05-24 10:46] LABS: Hemoglobin 9.5 g/dL (12.2-16.2)
--- NOTE | 2018-05-24 12:26 | H&P/Discharge Summary ---
Addendum entered and electronically signed by Danielle Hughes APRN 07/26/18 09:36: Original Note: General - General Admission date:: 05/24/18 Discharge date: 05/24/18 *Admission Date: 05/24/18 *Chief complaint: confusion,tremors *History of present illness: He 2-year-old female resident at [facility]. pt with baseline altered mental status, sent for reported worsened behavior, pt is cooperative and in and out of sleep as is her norm [facility] History I have reviewed the patient's past medical history: Yes Medical History: Reports:: Diabetes Mellitus Type 2, Hyperlipidemia, Hypertension Denies:: Cancer, Diabetes Mellitus Type 1, Internal Pacemaker, Lung Disease, MRSA, Seizures Other Surgeries: No: Pacemaker Amputation: No Fractures: No - *Social History Smoking Status: Former smoker Alcohol Intake: never Occupational Status: retired, disabled Housing: residential - Psychiatric History Expresses thoughts of harming self/others: None Suicide Plan Description: No Plan Review of Systems - Review of Systems Review of systems:: unable to obtain - *Neurologic Denies headache(s), Denies seizure-like activity Exam Vital signs and Labs for Last 24 Hours: Temp Pulse Resp BP Pulse Ox 98.5 F 78 18 134/81 95 05/24/18 08:00 05/24/18 08:00 05/24/18 08:00 05/24/18 08:00 05/24/18 08:00 Laboratory Results - last 24 hr 05/23/18 21:25: WBC 10.7, RBC 3.97 L, Hgb 11.1 L, Hct 36.9 L, MCV 92.9, MCH 27.9, MCHC 30.0 L, RDW 12.8, Plt Count 509 H, MPV 8.2, Neut % (Auto) 79.8, Lymph % (Auto) 15.0, [place] % (Auto) 4.2, Eos % (Auto) 0.5, Baso % (Auto) 0.4, Neut # (Auto) 8.5 H, Lymph # (Auto) 1.6, [place] # (Auto) 0.5, Eos # (Auto) 0.1, Baso # (Auto) 0.1 05/23/18 21:25: Urine Color Yellow, Urine Appearance Cloudy, Urine pH 6.0, Ur Specific [place] 1.025, Urine Protein Trace, Urine Glucose (UA) Negative, Urine Ketones Negative, Urine Blood 2+, Urine Nitrate Negative, Urine Bilirubin Negative, Urine Urobilinogen 0.2, Ur Leukocyte Esterase 3+ A, Urine RBC Occasional, Urine WBC Tntc A, Ur Squamous Epith Cells 3-5, Urine Bacteria 1+ 05/23/18 21:25: Sodium 140, Potassium 3.8, Chloride 101, Carbon Dioxide 24, Anion Gap 18.8 H, BUN 37 H, Creatinine 1.27 H, Estimated Creat Clear 27, Estimated GFR 40 L, Est GFR ( Amer) 49 L, Glucose 95, Calcium 9.1 05/23/18 21:25: Total Bilirubin 0.4, Direct Bilirubin 0.1, Indirect Bilirubin 0.3, AST 43 H, ALT 36, Alkaline Phosphatase 91, Troponin I 0.05, Total Protein 6.8, Albumin 2.7 L, Amylase 71, Lipase 78 05/23/18 22:05: Lactic Acid 2.3 H 05/24/18 02:00: Lactic Acid Fup @ 4Hr 2.2 H 05/24/18 04:20: Lactic Acid Fup @ 2Hr 2.8 H 05/24/18 06:06: POC Glucose 63 L 05/24/18 08:50: WBC 9.2, RBC 3.38 L, Hgb 9.5 L D, Hct 31.0 L, MCV 91.9, MCH 28.3, MCHC 30.8 L, RDW 12.9, Plt Count 476 H, MPV 7.7, Neut % (Auto) 75.8, Lymph % (Auto) 18.2, [place] % (Auto) 4.4, Eos % (Auto) 1.1, Baso % (Auto) 0.4, Neut # (Auto) 7.0, Lymph # (Auto) 1.7, [place] # (Auto) 0.4, Eos # (Auto) 0.1, Baso # (Auto) 0.0 05/24/18 08:50: Sodium 140, Potassium 4.4, Chloride 105, Carbon Dioxide 20 L, Anion Gap 19.4 H, BUN 32 H, Creatinine 1.11 H, Estimated Creat Clear 32, Estimated GFR 47 L, Est GFR ( Amer) 57 L, Glucose 93, Calcium 8.4 L, Magnesium 1.3 L I & O for Last 24 hours: Intake & Output 05/22/18 05/23/18 05/24/18 05/25/18 11:59 11:59 11:59 11:59 Intake Total 0 / 0 Output Total 650 / 650 Balance -650 / -650 Weight 117 lb 4.575 oz - Constitutional no acute distress - *Routine HEENT Exam Head: Present: normocephalic Eye: Present: PERRL ENT: Present: mucous membranes moist - *Routine Respiratory Exam Present: diminished air movement - *Routine Cardiovascular Exam Present: RRR - *Routine Abdominal Exam Present: soft, normoactive bowel sounds - *Routine Extremities Exam Present: full ROM Comments: dressings to dandy feet - *Routine Skin Exam Comments: dressing to dandy feet and buttocks - *Routine Neurological Exam Present: altered mental status, moving all extremities involuntary movements and tremors - Routine Psychiatric Exam Present: auditory hallucinations, anxious, agitated Hospital Course Hospital Course: Positive for UTI antibiotics started Patient has involuntary muscle movements to the extremities, seems frightened, and unable to communicate. Will transfer to [facility] for neurology consult Dr. king the patient for transfer. Results Labs on day of discharge: Labs from last 24 hours 05/24/18 05/24/18 05/24/18 08:50 08:50 06:06 WBC 9.2 RBC 3.38 L Hgb 9.5 L D Hct 31.0 L MCV 91.9 MCH 28.3 MCHC 30.8 L RDW 12.9 Plt Count 476 H MPV 7.7 Neut % (Auto) 75.8 Lymph % (Auto) 18.2 [place] % (Auto) 4.4 Eos % (Auto) 1.1 Baso % (Auto) 0.4 Neut # (Auto) 7.0 Lymph # (Auto) 1.7 [place] # (Auto) 0.4 Eos # (Auto) 0.1 Baso # (Auto) 0.0 Sodium 140 Potassium 4.4 Chloride 105 Carbon Dioxide 20 L Anion Gap 19.4 H BUN 32 H Creatinine 1.11 H Estimated Creat Clear 32 Estimated GFR 47 L Est GFR ( Amer) 57 L Glucose 93 POC Glucose 63 L Lactic Acid Lactic Acid Fup @ 2Hr Lactic Acid Fup @ 4Hr Calcium 8.4 L Magnesium 1.3 L Total Bilirubin Direct Bilirubin Indirect Bilirubin AST ALT Alkaline Phosphatase Troponin I Total Protein Albumin Amylase Lipase Urine Color Urine Appearance Urine pH Ur Specific [place] Urine Protein Urine Glucose (UA) Urine Ketones Urine Blood Urine Nitrate Urine Bilirubin Urine Urobilinogen Ur Leukocyte Esterase Urine RBC Urine WBC Ur Squamous Epith Cells Urine Bacteria 05/24/18 05/24/18 05/23/18 04:20 02:00 22:05 WBC RBC Hgb Hct MCV MCH MCHC RDW Plt Count MPV Neut % (Auto) Lymph % (Auto) [place] % (Auto) Eos % (Auto) Baso % (Auto) Neut # (Auto) Lymph # (Auto) [place] # (Auto) Eos # (Auto) Baso # (Auto) Sodium Potassium Chloride Carbon Dioxide Anion Gap BUN Creatinine Estimated Creat Clear Estimated GFR Est GFR ( Amer) Glucose POC Glucose Lactic Acid 2.3 H Lactic Acid Fup @ 2Hr 2.8 H Lactic Acid Fup @ 4Hr 2.2 H Calcium Magnesium Total Bilirubin Direct Bilirubin Indirect Bilirubin AST ALT Alkaline Phosphatase Troponin I Total Protein Albumin Amylase Lipase Urine Color Urine Appearance Urine pH Ur Specific [place] Urine Protein Urine Glucose (UA) Urine Ketones Urine Blood Urine Nitrate Urine Bilirubin Urine Urobilinogen Ur Leukocyte Esterase Urine RBC Urine WBC Ur Squamous Epith Cells Urine Bacteria 05/23/18 05/23/18 05/23/18 21:25 21:25 21:25 WBC RBC Hgb Hct MCV MCH MCHC RDW Plt Count MPV Neut % (Auto) Lymph % (Auto) [place] % (Auto) Eos % (Auto) Baso % (Auto) Neut # (Auto) Lymph # (Auto) [place] # (Auto) Eos # (Auto) Baso # (Auto) Sodium 140 Potassium 3.8 Chloride 101 Carbon Dioxide 24 Anion Gap 18.8 H BUN 37 H Creatinine 1.27 H Estimated Creat Clear 27 Estimated GFR 40 L Est GFR ( Amer) 49 L Glucose 95 POC Glucose Lactic Acid Lactic Acid Fup @ 2Hr Lactic Acid Fup @ 4Hr Calcium 9.1 Magnesium Total Bilirubin 0.4 Direct Bilirubin 0.1 Indirect Bilirubin 0.3 AST 43 H ALT 36 Alkaline Phosphatase 91 Troponin I 0.05 Total Protein 6.8 Albumin 2.7 L Amylase 71 Lipase 78 Urine Color Yellow Urine Appearance Cloudy Urine pH 6.0 Ur Specific [place] 1.025 Urine Protein Trace Urine Glucose (UA) Negative Urine Ketones Negative Urine Blood 2+ Urine Nitrate Negative Urine Bilirubin Negative Urine Urobilinogen 0.2 Ur Leukocyte Esterase 3+ A Urine RBC Occasional Urine WBC Tntc A Ur Squamous Epith Cells 3-5 Urine Bacteria 1+ 05/23/18 21:25 WBC 10.7 RBC 3.97 L Hgb 11.1 L Hct 36.9 L MCV 92.9 MCH 27.9 MCHC 30.0 L RDW 12.8 Plt Count 509 H MPV 8.2 Neut % (Auto) 79.8 Lymph % (Auto) 15.0 [place] % (Auto) 4.2 Eos % (Auto) 0.5 Baso % (Auto) 0.4 Neut # (Auto) 8.5 H Lymph # (Auto) 1.6 [place] # (Auto) 0.5 Eos # (Auto) 0.1 Baso # (Auto) 0.1 Sodium Potassium Chloride Carbon Dioxide Anion Gap BUN Creatinine Estimated Creat Clear Estimated GFR Est GFR ( Amer) Glucose POC Glucose Lactic Acid Lactic Acid Fup @ 2Hr Lactic Acid Fup @ 4Hr Calcium Magnesium Total Bilirubin Direct Bilirubin Indirect Bilirubin AST ALT Alkaline Phosphatase Troponin I Total Protein Albumin Amylase Lipase Urine Color Urine Appearance Urine pH Ur Specific [place] Urine Protein Urine Glucose (UA) Urine Ketones Urine Blood Urine Nitrate Urine Bilirubin Urine Urobilinogen Ur Leukocyte Esterase Urine RBC Urine WBC Ur Squamous Epith Cells Urine Bacteria - Additional Comments Rounded with Dr. Soto all orders per [place] Discharge Medications Discharge Medications: Home Medications Medication Instructions Recorded Confirmed Type Amlodipine Besylate [Norvasc 5mg 5 mg PO HS 01/09/18 05/24/18 History tablet] Hydrocodone/Acetaminophen 1 each PO QID 01/09/18 05/24/18 History [Hydrocodone-Acetamin 10-325 mg] Loratadine [Claritin] 10 mg PO DAILY 01/09/18 05/24/18 History Metformin HCl 500 mg PO BIDWM 01/09/18 05/24/18 History Baclofen [Lioresal 10mg tablet] 10 mg PO TID 04/08/18 05/24/18 History Mirtazapine [Remeron 15mg tablet] 15 mg PO HS 04/08/18 05/24/18 History Sennosides/Docusate Sodium 2 tab PO BID 04/08/18 05/24/18 History [Senna-S Tablet] Ascorbic Acid [Vitamin C] 1,000 mg PO DAILY 05/16/18 05/23/18 History Ketorolac Tromethamine [Acular] 1 drop EYE-RIGHT BID 05/23/18 05/24/18 History Prednisolone Acetate/Pf 1 drop OP BID 05/24/18 05/24/18 History [Prednisolone Acet 1% Eye Drop] Disposition Disposition: Xfer Short-Term Hosp
[2018-05-24 17:10] VITALS: BP 120/60
== END 2018-05-24 18:06 | disposition short-term general hospital (02) ==
LOC: ER 20:55 → 2ND 20:55
PROVIDERS: ADMIT Emergency Medicine; ATTEND Emergency Medicine
CPT/HCPCS: 36415; 70450; 71010; 71045; 80048; 80076; 81001; 82150; 82962; 83605; 83690; 83735; 84443; 84484; 85025; 87040; 87086; 93005; 96365; 99285; G0378; J1956